=== PATIENT | female | born 1940 | race Caucasian/White ===

== ENCOUNTER → 2023-04-10 | Emergency (ER) | payer OTHER, MEDICARE ==
[~2023-04-10] MED LIST: DERMABOND SKIN ADHESIVE TOP ONE; TDAP (DIPHTH,PERTUSS(ACELL),TET VAC) 0.5 ML VIAL IMVAC ONE
--- OUTSIDE RECORDS SUMMARY | 2023-04-10 10:55 | XMS REPORT | Continuity of Care Document ---
Author Name Unknown Address [address] [facility] [address] [place] [address] [facility] Address [address] [facility] [address] [place] [address] Care Team Providers Care Workforce Advisor Name Role Phone LASHON GARCIA Primary Care Physician BISHNU Lowe Attending Clinician Bishnu Mcarthur MD Attending Clinician [phone] Doctor Unassigned, [place] Attending Clinician U LASHON Hope Admitting Clinician Unavailab le Payers Payer Name Policy Type Policy Number Effective Date Expirati on Date Source MEDICARE PART A \T\ B [id number] 2007 00:00:00 [facility] MEDICARE SUPPLEMENT [id number] 2018 00:00:00 Allergies, Adverse Reactions, Alerts Allergy Name Allergy Type Status Severity Reaction(s) Onset Date Inactive Date Treating Clinician Comments Source NO KNOWN ALLERGIE S Drug Class Active [facility] Social History Social Habit Start Date Stop Date Quantity Comments Source Exposure to SARS-CoV-2 (event) 2022-03-15 00:00:00 2022-03-25 10:07:[address] [facility] Sex Assigned At 1940 00:00[birth year]00 1940 00:00:[address] [facility] Smoking Status Start Date Stop Date Source Tobacco smoking consumption unknown [facility] Procedures Procedure Date / Time Performed Performing Clinicia n Source DEXA AXIAL (HIP AND SPINE) 2022-03-26 21:37:24 Requisition, Paper [facility] CONSENT/REFUSAL FOR DIAGNOSIS AND TREATMENT 2022-03-26 21:18:20 Doctor Unassigned, [place] [facility] Encounters Start Date/Time End Date/Time Encounter Type Admission Type Attending Clinicians Care Facility Care Department Encounter ID Source 2022-03-26 15:23:16 2022-03-26 23:59:00 Outpatient R BISHNU MICHELE [facility] [id number] [facility] 2022-03-26 15:23:16 2022-03-26 23:59:00 Hospital Encounter Bishnu Michele [facility] [id number] [facility] 2022-03-26 00:00:00 2022-03-26 00:00:00 Orders Only Doctor Unassigned, [place] [facility] [id number] [facility]
--- NOTE | 2023-04-10 11:30 | RAD REPORT ---
EXAM DESCRIPTION: CT - [id number] - 04/10/2023 11:16 am CLINICAL HISTORY: Trauma, head and neck injury. TRAUMA COMPARISON: No comparisons TECHNIQUE: Axial 5 mm thick images of the head were obtained. Axial 2 mm thick images of the cervical spine were obtained with sagittal and coronal reconstruction images generated and reviewed. All CT scans are performed using dose optimization technique as appropriate and may include automated exposure control or mA/KV adjustment according to patient size. FINDINGS: CT HEAD WITHOUT CONTRAST: No acute hemorrhage, hydrocephalus or extra-axial collection is identified.Mild generalized brain atr ophy is present with mild periventricular and deep white matter chronic microvascular ischemic change s.No areas of brain edema or midline shift. Complete opacification right maxillary antrum. The paranasal sinuses and mastoids are otherwise clear .Trace fluid in both mastoid air cells.The calvarium is intact. CT CERVICAL SPINE WITHOUT CONTRAST: No fracture or subluxation.Mild cervical degenerative changes.No prevertebral soft tissues swelling i s identified. IMPRESSION: No acute intracranial or cervical spine findings.
--- NOTE | 2023-04-10 12:16 | EDPHYS ---
Physician Documentation [facility] Name: Nicolasa Sigala Age: 82 yrs Sex: Female : 1940 Arrival Date: 04/10/2023 Time: 10:52 Bed 8 Private MD: ED Physician Alvaro Hoff HPI: 04/10 11:02 This 82 yrs old Female presents to ER via Unassigned with complaints of Fall ec2 Injury. 11:02 Patient arrives today for evaluation after ground-level fall. Patient states that she ec2 was walking subsequently tripped over her own symptoms and subsequently struck her head. Reports no LOC, reports she is on a blood thinner but cannot remember which 1. Reports no neck pain. Patient reports no prodromal symptoms, no chest pain, no difficulty breathing. Patient is unsure of her last tetanus shot.. Historical: - Allergies: 11:00 No Known Allergies; bp - Home Meds: 11:00 metoprolol tartrate 25 mg Oral tablet 1 tab daily [Active]; pravastatin 40 mg oral bp tablet 1 tab daily [Active]; fexofenadine 180 mg Oral tablet 1 tab daily [Active]; flecainide 50 mg oral tablet 1 tab every 12 hours [Active]; losartan 25 mg oral tablet 1 tab daily [Active]; - PMHx: 11:00 Hypertensive disorder; Atrial fibrillation; bp - Immunization history:: Adult Immunizations up to date. - Social history:: Smoking status: Patient denies any tobacco usage or history of. ROS: 11:02 Constitutional: as per hpi ec2 Exam: 11:02 Constitutional: GEN: No acute distress HEENT: -Head: atraumatic -Eyes: EOMI CV: ec2 regular rate LUNGS: no respiratory distress ABD: non-tender SKIN: 2 cm laceration noted above the left eyebrow. MSK: No C/T/L spine deformities RUE w/o bony deformity LUE w/o bony deformity RLE w/o bony deformity LLE w/o bony deformity NEURO: moves all extremities equally, GCS 15 (E4, V5, M6) Vital Signs: 11:00 BP 223 / 79; Pulse 64; Resp 16; Temp 98; Pulse Ox 97% ; Weight 71.67 kg; Height 5 ft. 4 bp in. ; 12:42 BP 181 / 75; Pulse 67; Resp 16; Pulse Ox 97% ; bp 11:00 Body Mass Index 27.12 (71.67 kg, 162.56 cm) bp Laceration: 12:14 Wound Repair of 3cm ( 1.2in ) subcutaneous laceration to face. Distal ec2 neuro/vascular/tendon intact. Skin closed with dermabond Adhesive skin closure using Dermabond. Dressed with open. Patient tolerated well. MDM: 10:56 Patient medically screened. ec2 11:02 ED course: Patient arrives today for evaluation after ground-level fall. Examination ec2 remarkable for wound as noted above. Will obtain CT scan of the head and C-spine, update the patient's tetanus status and perform wound management. Patient would like to avoid stitches if possible, will initially attempt with tissue adhesive then revert to stitches if needed.. 11:52 Data reviewed: vital signs. ED course: CT of the head and C-spine without acute ec2 traumatic process.. 12:14 ED course: Laceration repaired without issue, repaired with tissue adhesive. Will ec2 discharge home. Return precautions given. Wound care instructions given.. 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: [employer]; Exp: ThuSep 02 2024; Lot #: [id number]; Series: 1 of 1; Patient Consent: Obtained; Date/Time: ; Source Name: Nicolasa Bradshawidge; Source Relationship: Self; Address Information: [address] [place] [address]; ; Education: Provided; VIS Presented Date: ; VIS Publication: DTaP (Diphtheria, Tetanus, Pertussis) Vaccine VIS 11/16/2020} Route: IM; Site: left gluteus; 12:44 Follow up: Response: No adverse reaction bp Disposition Summary: 04/10/23 12:15 Discharge Ordered Notes: Location: Home ec2 Condition: Stable ec2 Diagnosis - Laceration without foreign body of unspecified part of head ec2 Followup: ec2 - With: Private Physician - When: - Reason: Re-evaluation by your physician Discharge Instructions: - Discharge Summary Sheet ec2 - Facial Laceration, [id number] ec2 Forms: - Medication Reconciliation Form ec2 - Thank You Letter ec2 - Antibiotic Education ec2 - Prescription Opioid Use ec2 - Patient Portal Instructions ec2 - Leadership Thank You Letter ec2 Signatures: Dispatcher [employer] Shawn Rodarte, LJ RN Alvaro Das MD MD ec2
--- NOTE | 2023-04-10 12:16 | ER ---
Nurse's Notes [facility] Name: Nicolasa Sigala Age: 82 yrs Sex: Female : 1940 Arrival Date: 04/10/2023 Time: 10:52 Bed 8 Private MD: Diagnosis: Laceration without foreign body of unspecified part of head Presentation: 04/10 11:00 Chief complaint: Patient states: FALL INJURY. Coronavirus screen: At this time, the bp client does not indicate any symptoms associated with coronavirus-19. Ebola Screen: No symptoms or risks identified at this time. Initial Sepsis Screen: Does the patient meet any 2 criteria? No. Patient's initial sepsis screen is negative. Does the patient have a suspected source of infection? No. Patient's initial sepsis screen is negative. Risk Assessment: Do you want to hurt yourself or someone else? Patient reports no desire to harm self or others. Onset of symptoms is unknown. 11:00 Method Of Arrival: Wheelchair bp 11:00 Acuity: JAMSEET 3 bp Triage Assessment: 11:00 General: Appears in no apparent distress. Behavior is calm, cooperative. Pain: bp Complains of pain in head. 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 - Social history:: Smoking status: Patient denies any tobacco usage or history of. Screenin:42 [facility] ED Fall Risk Assessment (Adult) History of falling in the last 3 months, bp including since admission Yes- single mechanical fall (1 pt). Abuse screen: Denies threats or abuse. Denies injuries from another. Nutritional screening: No deficits noted. Tuberculosis screening: No symptoms or risk factors identified. Assessment: 12:42 Reassessment: Patient appears in no apparent distress at this time. Patient is alert, bp oriented x 3, equal unlabored respirations, skin warm/dry/pink. Vital Signs: 11:00 BP 223 / 79; Pulse 64; Resp 16; Temp 98; Pulse Ox 97% ; Weight 71.67 kg; Height 5 ft. 4 bp in. ; 12:42 BP 181 / 75; Pulse 67; Resp 16; Pulse Ox 97% ; bp 11:00 Body Mass Index 27.12 (71.67 kg, 162.56 cm) bp ED Course: 10:53 Patient arrived in ED. rg4 10:54 Alvaro Hoff MD is Attending Physician. ec2 10:58 Shawn Almaraz, LJ is Primary Nurse. bp 11:00 Arm band placed on. bp 11:18 CT Head C Spine In Process Unspecified. EDMS 11:23 Triage completed. bp 12:42 Patient has correct armband on for positive identification. Bed in low position. Call bp light in reach. Adult w/ patient. 12:42 Assist provider with laceration repair on head that was 2.5 cm. or less using bp Dermabond. Performed by Alvaro Hoff MD Patient tolerated well. 12:44 Patient did not have IV access during this emergency room visit. 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 [address]; ; Education: Provided; VIS Presented Date: ; VIS Publication: DTaP (Diphtheria, Tetanus, Pertussis) Vaccine VIS 11/16/2020} Route: IM; Site: left gluteus; 12:44 Follow up: Response: No adverse reaction bp Medication: 12:42 VIS not applicable for this client. bp Outcome: 12:15 Discharge ordered by . ec2 12:42 Discharged to home ambulatory, with family, bp 12:42 Condition: stable 12:42 Discharge instructions given to patient, family, Instructed on discharge instructions, follow up and referral plans. wound care, Demonstrated understanding of instructions, follow-up care, wound care, 12:44 Patient left the ED. bp Signatures: Dispatcher [employer] Franci Urbina rg4 Shawn Almaraz, RN RN bp Alvaro Hoff MD MD ec2
[2023-04-10 13:36] VITALS: BP 181/75; TEMP 98; O2SAT 97
== END ==
LOC: ER 10:52
PROC: 0HQ1XZZ Repair Face Skin, External Approach (ICD-10-PCS; principal; 2023-04-10)
DX: S01.81XA Laceration without foreign body of other part of head, initial encounter (principal); Z23 Encounter for immunization; I10 Essential (primary) hypertension; I48.91 Unspecified atrial fibrillation
CPT/HCPCS: 70450; 72125; 90471; 99284

== ENCOUNTER 2024-07-26 18:37 | Inpatient (IN) | payer OTHER, MEDICARE ==
--- OUTSIDE RECORDS SUMMARY | 2024-07-26 18:40 | XMS REPORT | Continuity of Care Document ---
Author Name Unknown Address [address] [facility] [address] [place] [address] [facility] Address [address] [facility] [address] [place] [address] Care Team Providers Care Suture Winder Hand Name Role Phone LASHON GARCIA Primary Care Physician BISHNU Lowe Attending Clinician Bishnu Mcarthur MD Attending Clinician [phone] Doctor Unassigned, [place] Attending Clinician U LASHON Hope Admitting Clinician Unavailab le Payers Payer Name Policy Type Policy Number Effective Date Expirati on Date Source MEDICARE PART A \T\ B [id number] 2007 00:00:00 [facility] MED[facility]PPLE[facility] [id number] 2018 00:00:00 Allergies, Adverse Reactions, Alerts Allergy Name Allergy Type Status Severity Reaction(s) Onset Date Inactive Date Treating Clinician Comments Source NO KNOWN ALLERGIE S Drug Class Active [facility] Social History Social Habit Start Date Stop Date Quantity Comments Source Exposure to SARS-CoV-2 (event) 2022-03-15 00:00:00 2022-03-25 10:07:00 Not sure [facility] Sex Assigned At 1940 00:00:00 1940 00:00:00 [facility] Smoking Status Start Date Stop Date Source Tobacco smoking consumption unknown [facility] Procedures Procedure Date / Time Performed Performing Clinicia n Source DEXA AXIAL (HIP AND SPINE) 2022-03-26 21:37:24 Requisition, Paper [facility] CONSENT/REFUSAL FOR DIAGNOSIS AND TREATMENT 2022-03-26 21:18:20 Doctor Unassigned, [place] [facility] Encounters Start Date/Time End Date/Time Encounter Type Admission Type Attending Clinicians Care Facility Care Department Encounter ID Source 2022-03-26 15:23:16 2022-03-26 23:59:00 Outpatient R BISHNU MICHELE [facility] [id number] [facility] 2022-03-26 15:23:16 2022-03-26 23:59:00 Hospital Encounter Bishnu Michele [facility] [id number] [facility] 2022-03-26 00:00:00 2022-03-26 00:00:00 Orders Only Doctor Unassigned, [place] [facility] [id number] [facility]
--- NOTE | 2024-07-26 19:13 | RAD REPORT ---
EXAM: CT brain without contrast HISTORY: Weakness;Confused COMPARISON: 04/10/2023 TECHNIQUE: Multiple contiguous axial images were obtained and a CT of the brain without contrast. Sag ittal and coronal reformats were performed. One or more of the following dose reduction techniques were used: Automated exposure control, adjust ment of the mA and/or kV according to patient size, and/or iterative reconstruction. FINDINGS: No evidence of hydrocephalus, intracranial hemorrhage, or extra-axial fluid collection. Mild brain atrophy with mild periventricular and deep white matter chronic microvascular ischemic ch anges present. No evidence of midline shift or areas of brain edema. The calvarium is intact. Mild polypoid mucosal thickening right maxillary antrum. IMPRESSION: No evidence of acute intracranial abnormality.
[2024-07-26 19:34] LABS: Absolute Basophils 0.1 K/uL (0-0.5); Absolute Lymphocytes (CBC) 0.3 K/uL (0.7-4.9); Absolute Monocytes 1.6 K/uL (0.1-1.3); Absolute Neutrophil 11.9 K/uL (1.8-8.0); Basophils % 0.4 % (0-1.3); Eosinophils % 0.3 % (0-4.4); Hematocrit 39.4 % (36.0-45.0); Hemoglobin 13.4 g/dL (12.0-15.0); MCV 91.2 fL (80-100); MPV 8.6 fL (7.6-11.3); Monocytes % 11.3 % (3.3-12.3); Platelets 291 thou/uL (152-406); RBC Red Blood Cell Count 4.31 M/uL (3.86-4.86); Red Cell Distribution Width 14.2 % (12.1-15.2)
[2024-07-26 19:51] LABS: PT Prothrombin Time 11.6 SECONDS (10-13.0); PTT, Activated Partial Thromb 17.6 SECONDS (27.2-37.4); Protime INR 1.02
[2024-07-26 20:04] LABS: Albumin 2.9 g/dL (3.4-5.0); Albumin/Globulin Ratio 0.9 (1.1-1.8); Anion Gap 9.5 mEq/L (5.0-15.0); Bilirubin Direct 0.2 mg/dL (0-0.2); Bilirubin Indirect, Calculated 0.4 mg/dL (0.2-0.8); Bilirubin Total 0.6 mg/dL (0.2-1.0); Globulin 3.3 g/dL (2.3-3.5); Magnesium 2.1 mg/dL (1.6-2.4); Potassium 3.5 mEq/L (3.5-5.1); Protein, Total 6.2 g/dL (6.4-8.2); Troponin High Sensitivity 50.5 pg/mL (<58.9)
[2024-07-26 21:38] LABS: Blood Morphology Comment NOT SEEN (NOT SEEN); Platelet Estimate ADEQ; White Blood Cell Scan OK (OK)
[2024-07-26 22:59] LABS: Specific Gravity 1.028 (1.005-1.030); Sqamous Epithelial <5 /HPF (None Seen); Urine Bacteria 20-50 /HPF (<20); Urine Bilirubin NEGATIVE (Negative); Urine Blood 1+ (Negative); Urine Clarity Extremely Turbid (Clear); Urine Color Yellow (Yellow); Urine Crystals Unidentified Few /HPF (None Seen); Urine Culture Reflex Order REFLEXED; Urine Glucose NEGATIVE (Negative); Urine Ketones 1+ (Negative); Urine Microscopic Reflex YN ORDER UMIC; Urine Mucus Slight /HPF (None Seen); Urine Nitrite NEGATIVE (Negative); Urine Protein 1+ (Negative); Urine RBC 21-50 /HPF (None Seen); Urine Urobilinogen Normal (Normal); Urine WBC >50 /HPF (<5); Urine WBC Clump Occasional /HPF (None Seen)
--- NOTE | 2024-07-26 23:08 | ER ---
Nurse's Notes [facility] Name: Nicolasa Sigala Age: 83 yrs Sex: Female : 1940 Arrival Date: 07/26/2024 Time: 18:37 Bed 13 Private MD: Diagnosis: Weakness;UTI/ Urinary tract infection, site not specified Presentation: 07/26 18:46 Chief complaint: EMS states: FALL IN BATHROOM AT HOME. Coronavirus screen: At this bp time, the client does not indicate any symptoms associated with coronavirus-19. Ebola Screen: No symptoms or risks identified at this time. Initial Sepsis Screen: Does the patient meet any 2 criteria? No. Patient's initial sepsis screen is negative. Does the patient have a suspected source of infection? No. Patient's initial sepsis screen is negative. Risk Assessment: Do you want to hurt yourself or someone else? Patient reports no desire to harm self or others. Onset of symptoms was July 26, 2024 at 17:00. Care prior to arrival: IV initiated. 20 GA, in the right forearm, Glucose check: 180. 18:46 Method Of Arrival: EMS: [facility] bp 18:46 Acuity: JASMEET 3 bp Triage Assessment: 18:47 General: Appears in no apparent distress. Behavior is calm, cooperative, appropriate bp for age. Pain: Denies pain. EENT: No deficits noted. Neuro: Reports weakness GENERALIZED. Cardiovascular: Rhythm is sinus rhythm. Respiratory: No deficits noted. GI: No signs and/or symptoms were reported involving the gastrointestinal system. : No signs and/or symptoms were reported regarding the genitourinary system. Derm: No deficits noted. Musculoskeletal: Reports weakness in GENERALIZED. Historical: - Allergies: 18:47 No Known Allergies; bp - PMHx: 18:47 Atrial fibrillation; Hypertensive disorder; bp - Immunization history:: Adult Immunizations up to date. - Infectious Disease History:: Denies. - Social history:: Smoking status: Patient denies any tobacco usage or history of. Screenin:49 [facility] ED Fall Risk Assessment (Adult) History of falling in the last 3 months, bp including since admission Yes- single mechanical fall (1 pt) Confusion or Disorientation Yes (5 pts) Intoxicated or Sedated No (0 pts) Impaired Gait No (0 pts) Mobility Assist Device Used Yes (1 pt) Altered Elimination No (0 pt) Score/Fall Risk Level 3 or more points = High Risk Oriented to surroundings, Maintained a safe environment. Abuse screen: Denies threats or abuse. Denies injuries from another. Nutritional screening: No deficits noted. Tuberculosis screening: No symptoms or risk factors identified. Assessment: 19:31 General: Appears in no apparent distress. comfortable, Behavior is calm, cooperative, bp appropriate for age. Pain: Denies pain. Neuro: Level of Consciousness is awake, alert, obeys commands, Oriented to person, place, situation, intermittently confused. Son reports pt has memory loss.. Cardiovascular: Patient's skin is warm and dry. Respiratory: Airway is patent Respiratory effort is even, unlabored, Respiratory pattern is regular, symmetrical. Derm: Skin is intact, Skin is pink, warm \T\ dry. Musculoskeletal: Circulation, motion, and sensation intact. Range of motion: intact in all extremities. 20:31 Reassessment: Patient appears in no apparent distress at this time. Patient and/or jb4 family updated on plan of care and expected duration. Pain level reassessed. Patient is alert, oriented x 3, equal unlabored respirations, skin warm/dry/pink. 21:30 Reassessment: Patient appears in no apparent distress at this time. Patient and/or jb4 family updated on plan of care and expected duration. Pain level reassessed. Patient is alert, oriented x 3, equal unlabored respirations, skin warm/dry/pink. 22:30 Reassessment: Patient appears in no apparent distress at this time. Patient and/or jb4 family updated on plan of care and expected duration. Pain level reassessed. Patient is alert, oriented x 3, equal unlabored respirations, skin warm/dry/pink. 07/27 00:00 Reassessment: Patient appears in no apparent distress at this time. Patient and/or jb4 family updated on plan of care and expected duration. Pain level reassessed. Patient is alert, oriented x 3, equal unlabored respirations, skin warm/dry/pink. 01:00 Reassessment: Patient appears in no apparent distress at this time. Patient and/or jb4 family updated on plan of care and expected duration. Pain level reassessed. Patient is alert, oriented x 3, equal unlabored respirations, skin warm/dry/pink. Vital Signs: 07/26 18:46 BP 113 / 65; Pulse 88; Resp 16; Temp 98; Pulse Ox 98% ; bp 20:02 BP 144 / 55; Pulse 84; Resp 16; Pulse Ox 100% on R/A; jb4 20:31 BP 138 / 57; Pulse 82; Resp 16; Pulse Ox 98% on R/A; jb4 21:30 BP 124 / 60; Pulse 83; Resp 16; Pulse Ox 99% on R/A; jb4 23:00 BP 128 / 58; Pulse 82; Resp 20; Pulse Ox 100% on R/A; jb4 07/27 00:00 BP 97 / 63; Pulse 82; Resp 18; Pulse Ox 99% on R/A; jb4 01:00 BP 131 / 49; Pulse 78; Resp 18; Pulse Ox 98% on R/A; jb4 Vitals: 07/26 20:02 Cardiac Rhythm Assessment Sinus rhythm. jb4 ED Course: 18:41 Patient arrived in ED. kb 18:42 Ruma Georges [facility]C [facility] kb 18:42 Elder Haro MD is Attending Physician. kb 18:46 Shawn Almaraz, LJ is Primary Nurse. bp 18:47 Triage completed. bp 18:47 Arm band placed on. bp 18:49 Patient has correct armband on for positive identification. bp 18:49 Maintain EMS IV. Dressing intact. Good blood return noted. Site clean \T\ dry. Gauge \T\ bp site: 20 RFA. 19:00 CT Head Brain wo Cont In Process Unspecified. EDMS 19:30 Basic Metabolic Panel Sent. bp 19:31 Provided Education on: plan of care. bp 19:31 CBC with Diff Sent. bp 19:31 Hepatic Function Sent. bp 19:31 Magnesium Sent. bp 19:31 Protime (+inr) Sent. bp 19:31 Ptt, Activated Sent. bp 19:31 Troponin High Sensitivity Sent. bp 19:31 No provider procedures requiring assistance completed. bp 23:07 Les Ballesteros MD is Hospitalizing Provider. kb 07/27 01:04 Patient admitted, IV remains in place. jb4 Administered Medications: 07/26 23:50 Drug: Rocephin IV 1 grams IV at calculated rate once; Given slow IV push per pharmacy jb4 instructions Route: IV; Rate: calculated rate; Site: right forearm; 07/27 02:18 Follow up: Response: No adverse reaction; IV Status: Completed infusion bm8 Medication: 07/26 19:31 VIS not applicable for this client. bp Outcome: 23:07 Decision to Hospitalize by Provider. kb 07/27 01:03 Admitted to ER Hold. Please see [facility] for further documentation. jb4 Condition: stable Discharge instructions given to patient, family, Instructed on the need for admit, Demonstrated understanding of instructions, 14:43 Patient left the ED. ph Signatures: Dispatcher [employer] [facility] Ruma Georges, LEAD PERFORMANCE SUPPORT ANALYST-C LEAD PERFORMANCE SUPPORT ANALYST-Scarlet Beebe, RN RN Lyle Dacosta, RN RN jb4 Shawn Almaraz, RN RN En Null, RN RN bm8
--- NOTE | 2024-07-26 23:08 | EDPHYS ---
Physician Documentation [facility] Name: Nicolasa Sigala Age: 83 yrs Sex: Female : 1940 Arrival Date: 07/26/2024 Time: 18:37 Bed 13 Private MD: ED Physician Elder Haro HPI: 07/26 19:03 This 83 yrs old Female presents to ER via EMS with complaints of Fall Injury. kb 19:03 Patient is a 83-year-old female who presents for weakness. Family states patient has kb been weak today and they found her in the bathroom just prior to arrival. States she was in there for less than an hour. Pt has no complaints. . Historical: - Allergies: 18:47 No Known Allergies; bp - PMHx: 18:47 Atrial fibrillation; Hypertensive disorder; bp - Immunization history:: Adult Immunizations up to date. - Infectious Disease History:: Denies. - Social history:: Smoking status: Patient denies any tobacco usage or history of. ROS: 19:03 Constitutional: As per HPI kb Exam: 19:03 Constitutional: This is a well developed, well nourished patient who is awake, alert, kb and in no acute distress. Head/Face: Normocephalic, atraumatic. ENT: Moist Mucous membranes Cardiovascular: Regular rate Respiratory: Respirations even and unlabored. No increased work of breathing. Talking in full sentences Abdomen/GI: Soft, non-tender. No distention Skin: Warm, dry with normal turgor. Normal color. MS/ Extremity: Pulses equal, no cyanosis. Neurovascular intact. Full, normal range of motion. Neuro: Awake and alert, GCS 15, oriented to person, place, time, and situation. 20:00 ECG was reviewed by the Attending Physician. kb Vital Signs: 18:46 BP 113 / 65; Pulse 88; Resp 16; Temp 98; Pulse Ox 98% ; bp 20:02 BP 144 / 55; Pulse 84; Resp 16; Pulse Ox 100% on R/A; jb4 20:31 BP 138 / 57; Pulse 82; Resp 16; Pulse Ox 98% on R/A; jb4 21:30 BP 124 / 60; Pulse 83; Resp 16; Pulse Ox 99% on R/A; jb4 23:00 BP 128 / 58; Pulse 82; Resp 20; Pulse Ox 100% on R/A; jb4 07/27 00:00 BP 97 / 63; Pulse 82; Resp 18; Pulse Ox 99% on R/A; jb4 01:00 BP 131 / 49; Pulse 78; Resp 18; Pulse Ox 98% on R/A; jb4 MDM: 07/26 18:41 Medical Screening Exam initiated kb 23:06 Differential diagnosis: uti, rhabdo, generalized weakness, abnormal electrolytes. Data kb reviewed: vital signs, nurses notes. Consideration of Admission/Observation Patient was admitted/placed on observation. Escalation of care including admission/observation considered. Management of patient was discussed with the following: Hospitalist: Dr Ballesteros accepts pt for admission. Historians other than the Patient: EMS: [facility]. Counseling: I had a detailed discussion with the patient and/or guardian regarding the historical points, exam findings, and any diagnostic results supporting the discharge/admit diagnosis, lab results, radiology results, the need for further work-up and treatment in the hospital. 23:22 ED course: I spoke with patient's son who informed me that patient lives alone and was kb found today on the floor but he is not sure how long she had been there. States he comes every Thursday to check in on her. States patient has been declining mentally and physically over the last year. States patient was too weak to get herself off the ground or to walk whenever he found her.. 07/26 18:43 Order name: Basic Metabolic Panel; Complete Time: 23:39 kb 07/26 18:43 Order name: CBC with Diff; Complete Time: 21:50 kb 07/26 18:43 Order name: Hepatic Function; Complete Time: 23:39 kb 07/26 18:43 Order name: Magnesium; Complete Time: 23:39 kb 07/26 18:43 Order name: Protime (+inr); Complete Time: 20:10 kb 07/26 18:43 Order name: Ptt, Activated; Complete Time: 20:10 kb 07/26 18:43 Order name: Troponin High Sensitivity; Complete Time: 23:39 kb 07/26 18:43 Order name: Urinalysis w/ reflexes; Complete Time: 23:03 kb 07/26 21:38 Order name: CBC Smear Scan; Complete Time: 21:50 EDMS 07/26 22:33 Order name: Creatine Phosphokinase; Complete Time: 23:39 EDMS 07/26 23:05 Order name: Urine Culture EDMS 07/26 23:39 Order name: Basic Metabolic Panel EDMS 07/26 23:39 Order name: Basic Metabolic Panel EDMS 07/26 23:39 Order name: CBC with Automated Diff EDMS 07/26 23:39 Order name: CBC with Automated Diff EDMS 07/26 18:43 Order name: CT Head Brain wo Cont; Complete Time: 19:17 kb 07/26 18:43 Order name: Cardiac monitoring; Complete Time: 19:52 kb 07/26 18:43 Order name: EKG - Nurse/Tech; Complete Time: 20:09 kb 07/26 18:43 Order name: IV Saline Lock; Complete Time: 19:15 kb 07/26 18:43 Order name: Labs collected and sent; Complete Time: 19:30 kb 07/26 18:43 Order name: NPO; Complete Time: 19:15 kb 07/26 18:43 Order name: O2 Per Protocol; Complete Time: 19:15 kb 07/26 18:43 Order name: O2 Sat Monitoring; Complete Time: 19:15 kb EC:00 Rate is 85 beats/min. Rhythm is regular. QRS Pollock is Normal. NE interval is normal at kb 142 msec. QRS interval is normal at 78 msec. QT interval is prolonged at 530 msec. Administered Medications: 23:50 Drug: Rocephin IV 1 grams IV at calculated rate once; Given slow IV push per pharmacy jb4 instructions Route: IV; Rate: calculated rate; Site: right forearm; 07/27 02:18 Follow up: Response: No adverse reaction; IV Status: Completed infusion bm8 Disposition: 07:01 Co-signature as Attending Physician, Elder Haro MD I reviewed the patient's care rt provided by the Advanced Practice Provider and agree with the diagnosis and treatment plan. Disposition Summary: 07/26/24 23:07 Hospitalization Ordered Notes: Hospitalization Status: Observation kb Provider: Les Ballesteros Condition: Stable kb Problem: new kb Symptoms: are unchanged kb Bed/Room Type: Standard kb Location: Telemetry/MedSurg (observation)(07/27/24 13:41) bd Room Assignment: 406(07/27/24 13:41) bd Diagnosis - Weakness kb - UTI/ Urinary tract infection, site not specified kb Forms: - Medication Reconciliation Form kb - SBAR form kb - Leadership Thank You Letter kb Signatures: Dispatcher [employer] EDMS Ruma Georges, YARDAGE TUFTING MACHINE OPERATOR-C YARDAGE TUFTING MACHINE OPERATOR-Ckb Tiffani Will James, RN RN jb4 Shawn Almaraz, RN RN bp Shireen Rodriguez, RN RN vc1 Elder Haro MD MD rt En Ellison RN bm8 Corrections: (The following items were deleted from the chart) 07/26 18:43 18:43 BASIC METABOLIC PANEL+C.LAB.BRZ ordered. EDMS EDMS 18:43 18:43 CBC+H.LAB.BRZ ordered. EDMS EDMS 18:43 18:43 HEPATIC FUNCTION+C.LAB.BRZ ordered. EDMS EDMS 18:43 18:43 MAGNESIUM+C.LAB.BRZ ordered. EDMS EDMS 18:43 18:43 PROTIME (+INR)+COAG.LAB.BRZ ordered. EDMS EDMS 18:43 18:43 PTT, ACTIVATED+COAG.LAB.BRZ ordered. EDMS EDMS 18:43 18:43 Troponin High Sensitivity+C.LAB.BRZ ordered. EDMS EDMS 18:43 18:43 Urinalysis+U.LAB.BRZ ordered. EDMS EDMS 18:43 18:43 Head Brain Wo Cont+CT.RAD.BRZ ordered. EDMS EDMS 22:30 22:29 CREATINE PHOSPHOKINASE+C.LAB.BRZ ordered. EDMS EDMS 07/27 00:01 07/26 23:07 Telemetry/MedSurg (observation) vc1 07/27 00:01 07/26 23:[address] [facility] 07/27 13:41 00:01 [facility] ER HOLD vc1 bd 13:41 00:01 ERHOLD- vc1 bd
[2024-07-26] MEDS ORDERED: ONDANSETRON 4 MG/2 ML VIAL IV PRN (23:35)
[2024-07-26] MEDS ORDERED: MORPHINE 2 MG/ML SYR IV PRN (23:35)
[2024-07-26] MEDS ORDERED: CEFTRIAXONE 1000 MG/VIAL ONE (23:35)
[2024-07-26] MEDS ORDERED: ACETAMINOPHEN 500 MG TAB PO PRN (23:35)
--- NOTE | 2024-07-27 01:48 | P.HP ---
Patient History Date of Service: 07/27/24 Reason for admission: Fall History of Present Illness: 83-year-old female with a past medical history of atrial fibrillation, dementia, hypertension presenting after a fall at home. Her son is at bedside and relates most of the history as the patient is oriented to person. He found her on the ground. He states she may have been there for about a day. He denies fevers and chills. He states she has no history of voiding or having bowel movements. Review of Systems is unable to be obtained Physical Examination - Physical Exam General: In no apparent distress HEENT: Normocephalic Neck: Supple Respiratory: Normal air movement Cardiovascular: No edema Capillary refill: <2 Seconds Gastrointestinal: Normal bowel sounds Musculoskeletal: No clubbing Integumentary: No rashes Neurological: Normal strength at 5/5 x4 extr Lymphatics: No axilla or inguinal lymphadenopathy - Studies Laboratory Data (last 24 hrs) 07/26/24 07/26/24 07/26/24 19:27 19:27 19:27 WBC 13.90 H Hgb 13.4 Hct 39.4 Plt Count 291 PT 11.6 INR 1.02 APTT 17.6 L Sodium 142 Potassium 3.5 BUN 47 H Creatinine 0.99 Glucose 136 H Magnesium 2.1 Total Bilirubin 0.6 AST 179 H ALT 80 H Alkaline Phosphatase 59 Assessment and Plan - Plan Rhabdomyolysis Acute cystitis Transaminitis Weakness Atrial fibrillation Hypertension Admit to floor Continue IV normal saline Start Rocephin Urine culture pending PT OT consult DVT prophylaxis with Lovenox - Advance Directives Does patient have a Living Will: No Does patient have a Durable POA for Healthcare: No
[2024-07-27 02:32] VITALS: BMI 24.3
[2024-07-27 05:48] LABS: Absolute Basophils 0.1 K/uL (0-0.5); Absolute Lymphocytes (CBC) 0.8 K/uL (0.7-4.9); Absolute Monocytes 1.3 K/uL (0.1-1.3); Basophils % 0.8 % (0-1.3); Hematocrit 38.8 % (36.0-45.0); Hemoglobin 13.3 g/dL (12.0-15.0); Lymphocytes % 7.7 % (15.3-44.8); MCH 31.4 pg (27.0-35.0); MCHC 34.3 g/dL (32.0-36.0); MCV 91.5 fL (80-100); MPV 8.8 fL (7.6-11.3); Monocytes % 12.6 % (3.3-12.3); Neutrophils % 78.9 % (41.7-73.7); Platelets 311 thou/uL (152-406); RBC Red Blood Cell Count 4.25 M/uL (3.86-4.86); Red Cell Distribution Width 14.4 % (12.1-15.2)
[2024-07-27 05:55] LABS: Anion Gap 7.6 mEq/L (5.0-15.0); Potassium 3.6 mEq/L (3.5-5.1)
[2024-07-27] MEDS ORDERED: NA CHLORIDE 0.9% 1,000 ML ONE (06:15)
[2024-07-27] MEDS: NA CHLORIDE 0.9% 1,000 ML IV SCH (06:20)
[2024-07-27] MEDS ORDERED: NA CHLORIDE 0.9% 100 ML ONE (08:36)
[2024-07-27] MEDS ORDERED: CEFTRIAXONE 1000 MG/VIAL ONE (08:36)
[2024-07-27] MEDS: CEFTRIAXONE 1,000 MG in NA CHLORIDE 0.9% 50 ML IVPB SCH (09:00)
[2024-07-28 09:12] LABS: Absolute Lymphocytes (CBC) 0.8 K/uL (0.7-4.9); Absolute Monocytes 0.7 K/uL (0.1-1.3); Absolute Neutrophil 5.1 K/uL (1.8-8.0); Basophils % 0.6 % (0-1.3); Eosinophils % 0.5 % (0-4.4); Hematocrit 36.1 % (36.0-45.0); Hemoglobin 12.2 g/dL (12.0-15.0); Lymphocytes % 12.5 % (15.3-44.8); MCH 31.2 pg (27.0-35.0); MCHC 33.7 g/dL (32.0-36.0); MCV 92.4 fL (80-100); MPV 8.4 fL (7.6-11.3); Monocytes % 10.8 % (3.3-12.3); Neutrophils % 75.6 % (41.7-73.7); Platelets 263 thou/uL (152-406); RBC Red Blood Cell Count 3.91 M/uL (3.86-4.86); Red Cell Distribution Width 13.9 % (12.1-15.2)
[2024-07-28 10:15] LABS: Albumin 2.5 g/dL (3.4-5.0); Albumin/Globulin Ratio 0.8 (1.1-1.8); Anion Gap 9.5 mEq/L (5.0-15.0); Bilirubin Total 0.5 mg/dL (0.2-1.0); Globulin 3.1 g/dL (2.3-3.5); Potassium 3.5 mEq/L (3.5-5.1); Protein, Total 5.6 g/dL (6.4-8.2)
[2024-07-28 21:17] VITALS: TEMP 97.9
[2024-07-29 04:38] VITALS: BP 161/68
[2024-07-29 09:25] VITALS: O2SAT 97
--- NOTE | 2024-08-03 13:09 | EKG ---
Test Date: 2024-07-26 Test Time: 19:33:04 Funeral Driver: ALAN MEASUREMENT RESULTS: Intervals: Rate: 84 [place]: QRSD: 78 QT: 426 QTc: 503 [place]: P: 68 [place]: QRS: 11 T: 43 INTERPRETIVE STATEMENTS: poor study, lot of artifact, hard to interpret rhythm. Anterior infarct, age undetermined Abnormal ECG No previous ECG available for comparison Electronically Signed On 08-03-24 12:49:14 CDT by Bautista Hinton
== END 2024-07-29 08:13 | DRG 558 ==
LOC: ER 18:37 → ERHOLD 23:34 → 4TH 07-27 14:22
PROVIDERS: ADMIT Family Medicine; ATTEND Hospitalist
DX: M62.82 Rhabdomyolysis (principal); N30.00 Acute cystitis without hematuria; I48.91 Unspecified atrial fibrillation; I10 Essential (primary) hypertension; F03.90 Unspecified dementia, unspecified severity, without behavioral disturbance, psychotic disturbance, mood disturbance, and anxiety; R74.01 Elevation of levels of liver transaminase levels; W18.30XA Fall on same level, unspecified, initial encounter; Y93.9 Activity, unspecified; Y92.019 Unspecified place in single-family (private) house as the place of occurrence of the external cause; Y99.9 Unspecified external cause status
CPT/HCPCS: 36415; 70450; 80048; 80053; 80076; 81001; 82550; 83735; 84484; 85025; 85610; 85730; 87077; 87086; 87088; 87186; 93005; 96365; 96366; 97116; 97161; 97530; 99285; J0696; J7030

== ENCOUNTER 2024-07-29 06:31 | Inpatient (IN) | payer OTHER, MEDICARE ==
[2024-07-29] MEDS ORDERED: MAGNESIUM HYDROXIDE 8% 30 ML PO PRN (08:18)
--- OUTSIDE RECORDS SUMMARY | 2024-07-29 08:18 | XMS REPORT | Continuity of Care Document ---
Author Name Unknown Address [address] [facility] [address] [place] [address] [facility] Address [address] [facility] [address] [place] [address] Care Team Providers Care Numerologist Name Role Phone LASHON GARCIA Primary Care Physician BISHNU Lowe Attending Clinician Bishnu Mcarthur MD Attending Clinician [phone] Doctor Unassigned, [place] Attending Clinician U LASHON Hope Admitting Clinician Unavailab le Payers Payer Name Policy Type Policy Number Effective Date Expirati on Date Source MEDICARE PART A \T\ B [id number] 2007 00:00:00 [facility] MEDICARE SUPPLEMENT [id number] 2018 00:00:00 Allergies, Adverse Reactions, Alerts Allergy Name Allergy Type Status Severity Reaction(s) Onset Date Inactive Date Treating Clinician Comments Source NO KNOWN ALLERGIE S Drug Class Active [facility] Social History Social Habit Start Date Stop Date Quantity Comments Source Exposure to SARS-CoV-2 (event) 2022-03-15 00:00:00 2022-03-25 10:07:00 Not sure [facility] Sex Assigned At 1940 00:00:00 1940 00:[birth year]:00 [facility] Smoking Status Start Date Stop Date Source Tobacco smoking consumption unknown [facility] Procedures Procedure Date / Time Performed Performing Clinicia n Source DEXA AXIAL (HIP AND SPINE) 2022-03-26 21:37:24 Requisition, Paper [facility] CONSENT/REFUSAL FOR DIAGNOSIS AND TREATMENT 2022-03-26 21:18:20 Doctor Unassigned, [place] [facility] Encounters Start Date/Time End Date/Time Encounter Type Admission Type Attending Clinicians Care Facility Care Department Encounter ID Source 2022-03-26 15:23:16 2022-03-26 23:59:00 Outpatient R BISHNU MICHELE [facility] [id number] [facility] 2022-03-26 15:23:16 2022-03-26 23:59:00 Hospital Encounter Bishnu Michele [facility] [id number] [facility] 2022-03-26 00:00:00 2022-03-26 00:00:00 Orders Only Doctor Unassigned, [place] [facility] [id number] [facility]
[2024-07-29 09:58] LABS: Specific Gravity 1.018 (1.005-1.030); Sqamous Epithelial <5 /HPF (None Seen); Transitional Epithelial <5 /HPF (None Seen); Urine Bacteria None Seen /HPF (<20); Urine Bilirubin NEGATIVE (Negative); Urine Blood Negative (Negative); Urine Clarity Clear (Clear); Urine Color Light-Yellow (Yellow); Urine Glucose NEGATIVE (Negative); Urine Ketones NEGATIVE (Negative); Urine Micro Reflex YN NO BILL MICROSCOPIC; Urine Mucus Slight /HPF (None Seen); Urine Nitrite NEGATIVE (Negative); Urine Protein NEGATIVE (Negative); Urine RBC <5 /HPF (None Seen); Urine Urobilinogen Normal (Normal); Urine WBC <5 /HPF (<5); Urine pH 6.5 (5.0-7.0)
[2024-07-29] MEDS: CEFDINIR 300 MG CAP PO SCH (19:22)
[2024-07-29 21:03] VITALS: BMI 24.3
--- NOTE | 2024-07-30 00:48 | HP ---
Date of Admission: 07/29/2024 Time Of Service: 2 p.m. Chief Complaint: "I fell and I need to get stronger." History Of Present Illness: Ms. Sigala is an 83-year-old patient with atrial fibrillation, lillie ia, hypertension, who lives alone at home, but has family close by. She apparently fell at home and was found on the bathroom floor by her son. The fall was unwitnessed and she was down for about 24 h ours. She was brought to hospital where evaluation revealed rhabdomyolysis, acute cystitis, urinary tract infection, transaminitis on top of her atrial fibrillation, hypertension with generalized weakn ess. She received significant IV hydration, was put on antibiotics, received Rocephin. Urine cultur es, blood cultures collected and had telemetry monitoring. She was evaluated by the Therapy Service and found to be functioning significantly below her baseline, where she was independent with mobiliza tion, ambulation, and taking care of her own activities of daily living. As a result of her rhabdomy olysis and falls, she now requires moderate assistance for transferring, mobilizing, ambulating, and dressing upper and lower body. She also requires aggressive management of fluid status to follow tavo ctrolytes to rule out any worsening infection such as urinary tract infection or pneumonia to maintai n her nutritional status and to follow her hemoglobin and hematocrit to reduce risk of significant an emia. As noted prior to falling, she was fully independent with all activities including cooking, cl eaning, taking care of herself, and driving independently to appointments and local destinations. Marily em is now admitted to the inpatient rehabilitation unit for physical, occupational, and speech therapy 3.5 hours, 5 of 7 days. If she is discharged home or admitted to another facility, she is not likel y to thrive or do well and could fall and worsen. Inpatient rehabilitation is necessary as she again will do well when she is in a safe place where she can have aggressive therapy. Past Medical History: As noted above. Allergies: NO KNOWN DRUG ALLERGIES. Medications: Tylenol 500 mg every 4 hours as needed, Cordarone 200 mg daily, cefdinir 300 mg twice d aily, Marla 180 mg daily, Cozaar 100 mg daily, milk of magnesia 30 mL daily as needed, Lopressor 25 mg daily, Xarelto 10 mg daily, [place] Thyroid 60 mg daily. Laboratory Studies: Urinalysis shows 75 esterase, but is otherwise unremarkable. White blood cell c ount 6.7, hemoglobin 12.2, hematocrit 36.1, platelets 263. Her potassium is 3.5, glucose 118, BUN 27 , creatinine 0.6, calcium 8.2, magnesium 2.1, albumin 2.5, and sodium 147. X-ray/imaging: CT scan of her head done on 07/26/2024 shows no evidence of acute intracranial abnorm alities. Family History: Noncontributory. Social History: No IV drug use. No alcohol. No tobacco use. Lives in a single family home and prerna es independently and alone. Review of Systems: No fevers, chills, nausea, vomiting. No significant myalgias or arthralgias except mild muscle spasm s and weakness proximally and distally. Some difficulty with sleep. Said there was some noise makin g it difficult for her to sleep well. Otherwise, no new complaints. Physical Examination: Vital Signs: Blood pressure 149/76, pulse of 68, respiratory rate 12, temperature is 97.8, oxygen sa turation 96% room air. Current Level Of Functioning: Currently, for her eating, setup assistance, grooming setup assistance , moderate assistance for bathing, supervision for upper body dressing and lower body dressing, moder ate assistance for toileting, supervision for transfer from bed, chair, wheelchair, her toilet transf ers is moderate assistance, ambulation 250 feet with supervision. Assessment: Ms. Sigala is an 83-year-old patient admitted to the rehabilitation unit with impairm ent category 09, orthopedic and her impairment group code is 08.9, other orthopedic. Etiologic diagn osis is rhabdomyolysis. Comorbid conditions are hypothyroidism, atrial fibrillation, hypertension, d ementia, insomnia, seasonal allergies, constipation. Plan: She will have physical, occupational, and speech therapy 3.5 hours, 5 of 7 days, to work on he r blood pressures and heart rate control with amiodarone 200 mg daily and Lopressor 25 mg daily, Xare lto 10 mg daily for DVT risk reduction and stroke risk reduction, [place] Thyroid 60 mg daily for hypo thyroidism. She is continuing the cefdinir antibiotic 300 mg twice daily from 07/29 to 08/03, Tyleno l for pain. Comorbidities That Are Impacting Rehabilitation: She does have a significant risk of stroke because of atrial fibrillation. She is on Xarelto. However, Xarelto does increase the risk of bleeding and fall precautions will be strictly adhered to as if she falls on noncompressible areas such as above h er head, there could be significant bleeding and so gait belt will be on at all times. She will have a wheelchair following as she uses a rolling walker with the therapist very close by. She is instru cted to call the nursing station for any transfers to her restroom, to retrieve objects within her ro om. She does have cefdinir to continue management of systemic infection from urinary tract. Repeat urinalysis, esterase 75, not consistent with ongoing infection, which is completing a course of infec tion, which was started prior to coming to rehabilitation. Rehab Specific Plan: Ms. Sigala will have physical, occupational, and speech therapy 3.5 hours, 5 of 7 days, to improve her ability to transfer from bed to chair, to toilet, to a shower in and out, to dress upper and lower body, to mobilize more than household distances, and up and down at least 10 steps. She will have cognitive therapy via Speech to help her with safety awareness, with processin g information, with communication, and how to manage medications safely and to maintain good precauti ons otherwise. Ms. Sigala has a good understanding of the process of admission to the inpatient rehabilitation un it, how she will benefit from physical, occupational, and speech therapy. She will have 24 hours a d ay, 7 days a week skilled rehabilitation and nursing, daily physician evaluation and management, and social services coordinator evaluation and management for discharge planning, home equipment, and to continue the rapy after she leaves. If need be, additional help will be sought [facility]. Barriers To Discharge: Since Ms. Sigala lives alone, she will need to be in very good condition t o be able to return home safely and reduce risk of falling again. She will work hard with the therap ist to be able to go back home. This will be communicated with family. However, if alternative situ ations are needed, that will be addressed at the time before the patient is discharged, but the goal is for her to be able to go back home and work hard with her family and continue therapy via [facility]. Length Of Stay: About 12 days. Disposition: Expected to be back home with family and to continue therapy. Prognosis: Good. Code Status: Full code. Rehab Specific Goals: 1. Become independent with upper and lower body dressing and donning and doffing footwear. 2. Independently mobilize a wheelchair and a rolling walker. 3. Independently dress upper and lower body and perform all activities of daily living. 4. Independently perform cognitive functioning safely and manage all medications, physician followups . The above goals were reviewed with Ms. Sigala and she is in agreement. By signing this document, I acknowledge I first performed a full physical examination on Ms. Suhail em no later than 24 hours after her admission to the inpatient rehabilitation unit and determined that she is able to tolerate the above course of treatment at an intensive level for a reasonable period of time. A detailed individualized plan of care for her will be completed by hospital day 4 based on the preadmission screen, history and physical, and therapy evaluations. DOUGLAS Voice ID: [id number]
[2024-07-30] MEDS: THYROID 30 MG TAB PO SCH (05:09)
[2024-07-30 05:33] LABS: Absolute Eosinophils 0.1 K/uL (0-0.5); Absolute Lymphocytes (CBC) 1.1 K/uL (0.7-4.9); Absolute Monocytes 0.5 K/uL (0.1-1.3); Absolute Neutrophil 3.2 K/uL (1.8-8.0); Basophils % 0.4 % (0-1.3); Eosinophils % 2.5 % (0-4.4); Hematocrit 34.6 % (36.0-45.0); Hemoglobin 12.1 g/dL (12.0-15.0); Lymphocytes % 22.2 % (15.3-44.8); MCH 31.9 pg (27.0-35.0); MCHC 34.9 g/dL (32.0-36.0); MCV 91.4 fL (80-100); MPV 8.7 fL (7.6-11.3); Monocytes % 10.6 % (3.3-12.3); Neutrophils % 64.3 % (41.7-73.7); Platelets 253 thou/uL (152-406); RBC Red Blood Cell Count 3.79 M/uL (3.86-4.86); Red Cell Distribution Width 13.8 % (12.1-15.2)
[2024-07-30 05:49] LABS: Albumin 2.4 g/dL (3.4-5.0); Anion Gap 8.8 mEq/L (5.0-15.0); Magnesium 1.9 mg/dL (1.6-2.4); Potassium 3.8 mEq/L (3.5-5.1); Prealbumin 12.7 mg/dL (20-40)
[2024-07-30] MEDS: METOPROLOL TAR 25 MG TAB PO SCH (09:10)
[2024-07-30] MEDS: RIVAROXABAN 10 MG TABLET PO SCH (09:10)
[2024-07-30] MEDS: AMIODARONE HCL 200 MG TAB PO SCH (09:11)
[2024-07-30] MEDS: LOSARTAN POTASSIUM 50 MG TABLET PO SCH (11:28)
[2024-07-30] MEDS: ENSURE ENLIVE 237 ML CAN PO SCH (19:46)
[2024-08-01] MEDS: ACETAMINOPHEN 500 MG TAB PO PRN (05:12)
--- NOTE | 2024-08-01 20:19 | PN ---
Date of Progress Note: 08/01/2024 Time Of Service: 1:30 P.m. Subjective: Ms. Sigala is doing very well, very happy with her therapy so far, making great progr ess that she is able to mobilize. She was talking about family and getting back to her baseline leve l of functioning and again making great progress with her therapy. Objective: No fevers, chills, nausea, vomiting, myalgias, arthralgias, rash, headaches, weight harrington e. No other issues or complaints. Physical Examination: Vital Signs: Blood pressure 134/61, pulse 82, respiratory rate 16, temperature 97.4, oxygen saturati on 97%, weight 151 pounds, height 5 feet 6 inches, BMI 24.4. General: Ms. Sigala is doing very well. She is sitting on a chair and doing therapy sessions. HEENT: Normocephalic, atraumatic. Sclerae are anicteric. Oropharynx pink and moist. Neck: Supple. Chest: Clear. Heart: Regular. Extremities: Show no significant clubbing, cyanosis, or edema. She does have mild proximal weakness of her lower extremities. Otherwise, no new findings there. Neurologic: Again, she is doing very well. No focal neurologic deficits noted, just proximal weakne ss. Laboratory Studies: White blood cell count 5.0, hemoglobin 12.1, platelets 253. Sodium 144, potassi um 3.8, chloride 110, carbon dioxide 29, BUN 13, creatinine 0.5, prealbumin 12.7, albumin 2.4, magnes ium 1.9, calcium 8.5. Urinalysis completely normal except for esterase of 75 on labs drawn on 07/29. X-ray imaging: No new x-rays or imaging. Medications: Tylenol 500 mg every 4 hours as needed, Cordarone 200 mg daily, cefdinir 300 mg twice d aily, Marla 180 mg daily, Cozaar 100 mg daily, milk of Mag 30 mL daily for constipation, Lopressor 25 mg daily Ensure Enlive 237 mL twice daily, Xarelto 10 mg daily, [place] Thyroid 60 mg daily. Progress Made With Physical, Occupational, And Speech Therapy: Today, with physical therapy she was able to do [id number] transfers independently, perform multiple [id number] transfers independe ntly and toilet transfers with hygiene done independently. She ambulated 600 feet, 250 feet, 150 fee t with standby assistance. Emphasis placed on upright posture. She was able to go up and down [address] st eps with standby assistance using bilateral handrails. With her speech, recalled 2 of 3 unrelated wo rds after 30 minutes and then 3 of 3 after another 3 and 5 minutes. Divergent naming completed for 1 0 words for concrete category with moderate verbal cues and 90% accuracy. Assessment: Ms. Sigala is an 83-year-old patient in the rehabilitation unit with rhabdomyolysis. She is making excellent progress, recovering strength in her proximal upper and lower extremities. She has well-controlled comorbid conditions, hypothyroidism, hypertension, mild malnutrition and is o n antibiotics. She has seasonal allergies, which are well addressed, pain is well addressed, sleepin g issues addressed as well. Plan: She will continue with physical, occupational, and speech therapy for 3.5 hours, 5 out of 7 da ys. She has a list of medications that have been noted that we will continue unchanged. In terms of her discharge, she is ready for discharge later in a week is recommended since she is doing very wel l actually outpatient therapy, although she was given information about home health and she will tracy ct a home health agency to continue therapy. GREG/SAUL Voice ID: [id number] Report ID: [id number]
--- NOTE | 2024-08-02 14:52 | PN ---
Date of Progress Note: 08/02/2024 Time Of Service: 1 p.m. Subjective: Ms. Sigala is sitting in a chair. Son is at the bedside. She is very happy with the rapy so far, smiling. Denies any significant pain. No new weakness. Some sensory loss or other com plaints and she is aware of her discharge. There is note of the patient's cognitive impairment, wher e she has some difficulty keeping up with words, thoughts, conversations, and would benefit from clos e supervision if not 24 hours at least, remote to supervision. [facility] that may allow family to keep an eye on her in addition to having assistance during the da y with the plan to be at home. Objective: No fevers, chills, nausea, vomiting, myalgias, arthralgias. Physical Examination: Vital Signs: Blood pressure is 159/66, pulse 66, respiratory rate 16, temperature 97.4, oxygen satur ation 95%. Weight 151, height 5 feet 6 inches, BMI 24.4. General: Again, Ms. Sigala is sitting in a chair comfortably. She is in no significant distress. She said the lunch was good and she did not have any complaints there. HEENT: Otherwise, normocephalic, atraumatic. Sclerae anicteric. Oropharynx pink, moist. No new ch anges in terms of examination. Laboratory Studies: No new laboratory studies. X-ray/imaging: No new x-rays or imaging. Medications: Her medications have been reviewed. She is still on amiodarone, cefdinir, Marla, Coz aar, Lopressor, milk of mag, Ensure Enlive. She has Xarelto for stroke and DVT risk reduction, [place] r Thyroid for hypothyroidism, and Tylenol for pain. Progress Made With Physical And Occupational Therapy: Today with her occupational therapy, she was i ndependent with toilet transfers, ambulated from bathroom to room to shower, was able to be on a show er chair. She did well. She was independent with toilet hygiene, completed hygiene standing at the sink as well without loss of balance and able to don and doff her footwear independently, upper body dressing independently and lower body dressing also was independent. She did have to have a reminder as to how to safely get dressed. Regarding her physical therapy, she covered 750 feet once and 250 feet with a rolling walker with standby assistance and another 500 feet without an assistive device a nd standby assistance. She was up and down 20 steps with standby assistance and another 10 steps als o using left hand rail. Assessment: Ms. Sigala is an 83-year-old patient in the rehabilitation unit with rhabdomyolysis. She is recovering in excellent fashion. She still has mild debility, mild decreased mobility and ph ysical functioning, hypertension, seasonal allergies, mild malnutrition, hypothyroidism, and atrial f ibrillation. Plan: Continue with physical, occupational, and speech therapy until discharge later in the week. S he will continue with the list of medications to address her comorbid conditions. She has DVT prophy laxis on board. Encourage actually to use incentive spirometry as well and work on discharge plan, w here she is in a safe environment as she has some cognitive issues and may make unsafe decisions whic h potentially could lead to falls, so fall precautions must be adhered to and having someone there du ring the day perhaps camera as much as possible at nighttime after she is discharged that will be hel pful. LB/MODL Voice ID: [id number] Report ID: [id number]
[2024-08-03] MEDS: FEXOFENADINE 180 MG TAB PO PRN (00:44)
[2024-08-03] MEDS: LIDOCAINE 4% PATCH TOP SCH (10:17)
--- NOTE | 2024-08-03 13:09 | EKG ---
Test Date: 2024-07-26 Test Time: 19:54:36 Repair Cameraman: ALAN MEASUREMENT RESULTS: Intervals: Rate: 85 DC: 138 QRSD: 82 QT: 320 QTc: 380 [place]: P: 68 DC: 138 QRS: 12 T: 47 INTERPRETIVE STATEMENTS: Normal sinus rhythm Anterior infarct, age undetermined Abnormal ECG Compared to ECG 07/26/2024 19:33:04 Atrial flutter no longer present Myocardial infarct finding still present Electronically Signed On 08-03-24 12:48:10 CDT by Bautista Hinton
--- NOTE | 2024-08-03 17:21 | RAD REPORT ---
EXAM: Chest Single View HISTORY: 83 years Female cough COMPARISON: None. FINDINGS: LUNGS/PLEURA: The lungs are clear. No pleural effusions or pneumothorax. No pulmonary edema. CARDIAC/MEDIASTINUM: The cardiac silhouette is within normal limits. UPPER ABDOMEN: No significant abnormality. BONES: No acute abnormality. LINES/TUBES/OTHER: N/A IMPRESSION: No evidence of acute cardiopulmonary disease.
[2024-08-03] MEDS: guaiFENesin 100 MG/5 ML UCUP PO PRN (17:33)
[2024-08-03 19:34] LABS: Influenza A Ag Negative; Influenza B Ag Negative
[2024-08-03 19:37] LABS: SARS-CoV-2 Antigen Rapid Res Positive (Negative)
[2024-08-04 05:49] LABS: Absolute Lymphocytes (CBC) 0.6 K/uL (0.7-4.9); Absolute Monocytes 0.9 K/uL (0.1-1.3); Absolute Neutrophil 3.8 K/uL (1.8-8.0); Basophils % 0.6 % (0-1.3); Eosinophils % 0.6 % (0-4.4); Hematocrit 34.5 % (36.0-45.0); Hemoglobin 11.8 g/dL (12.0-15.0); Lymphocytes % 10.7 % (15.3-44.8); MCH 31.2 pg (27.0-35.0); MCHC 34.4 g/dL (32.0-36.0); MCV 90.8 fL (80-100); MPV 8.4 fL (7.6-11.3); Monocytes % 16.4 % (3.3-12.3); Neutrophils % 71.7 % (41.7-73.7); Nucleated Red Blood Cells % 0.1 % (0-0); Platelets 204 thou/uL (152-406); Red Cell Distribution Width 14.5 % (12.1-15.2)
[2024-08-04 06:12] LABS: Albumin 2.6 g/dL (3.4-5.0); Anion Gap 8.9 mEq/L (5.0-15.0); Magnesium 2.2 mg/dL (1.6-2.4); Potassium 3.9 mEq/L (3.5-5.1); Prealbumin 16.5 mg/dL (20-40)
[2024-08-04] MEDS ORDERED: LIDOCAINE 4% PATCH TOP SCH (08:00)
[2024-08-04] MEDS: predniSONE 20 MG TAB PO SCH (11:00)
--- NOTE | 2024-08-04 18:59 | PN ---
Date of Progress Note: 08/04/2024 Time Of Service: 1:30 p.m. Subjective: Ms. Sigala was recently diagnosed with COVID. She had mild runny nose per the staff and was not short of breath in any significant way, had a very low-grade fever. She is currently lyi ng in bed, very happy with her therapy, made great progress and is about to be discharged home when t he upper respiratory tract symptoms led to a test for COVID which was positive. However, she does no t require any supplementation in terms of oxygenation. She is just now on a low dose of steroids 20 mg daily. Objective: There is no reported fever, chills, except for low-grade fever of around 99. No nausea, vomiting reported. No myalgias, arthralgias. No rash reported. Physical Examination: Vital Signs: Blood pressure 132/63, pulse 60, respiratory rate 18, temperature 98.8, oxygen saturati on 92%. Weight 151 pounds, height 5 feet 6 inches, BMI 24.4. General: As noted she is lying and resting comfortably in bed, very communicative and has no obvious deficit. She is in for the rhabdomyolysis and staff notes do indicate she is up and ambulating very well and would have been ready for discharge home yesterday if not for the positive COVID diagnosis. Laboratory Studies: White blood cell count 5.3, hemoglobin 11.8, platelets 204. Sodium 139, potassi um 3.9, chloride 106, carbon dioxide 28, BUN 13, creatinine 0.66, glucose 94. Calcium 5.8, magnesium 2.2. Albumin 2.6, prealbumin 16.5. Again the rapid COVID test that was done yesterday is positive. She had influenza A and B both negative. X-ray Imaging: A chest x-ray was done yesterday on the . The study showed no evidence of acute cardiopulmonary disease. No pulmonary edema. No pleural effusion. No pneumothorax. The cardiac si lhouette is in normal limits. Progress Made With Physical, Occupational, And Speech Therapy: With physical therapy, she did stand- to-pivot transfers independently. She did have some rocking body movements noted by the therapist. Gait training was independent covered over 300 feet in the room with multiple attempts and she ascend ed and descended step 12 times using single hand rail. With speech, she used divided attention to co mplete a task with 90% accuracy and minimum assistance for recall of directions. She had no issues r etrieving words during conversations, although intermittent lapses in attention were noted. With occ upational therapy, she was at a contact guard assistance level for [id number], wheelchair, she was independent for toileting, showering, upper lower body dressing and donning and doffing footwear with out the use of an assistive device. Assessment: Ms. Sigala is an 83-year-old patient in the rehabilitation unit with rhabdomyolysis f rom which she is recovering in excellent fashion. She has mild decreased mobility, decreased physica l functioning, hypertension, seasonal allergies. She is now COVID positive with very mild symptoms. She is on low-dose steroids. She has hypertension, mild malnutrition, atrial fibrillation, hypothyr oidism. Plan: She will continue with physical, occupational, speech therapy, 3.5 hours, 5/7 days. She has a list of comorbid condition medications which include [place] Thyroid 60 mg daily. She has Xarelto 10 mg daily and prednisone 20 mg daily in addition to Ensure Enlive 237 mL daily. The Xarelto is used in addition for DVT prophylaxis along with stroke risk reduction. Marla continued for seasonal all ergies, amiodarone for heart rate and blood pressure control, Cozaar for blood pressure control. Comorbidities Impacting Rehabilitation: Since she is just diagnosed with COVID and requires some iso lation for the acute phase around 3-5 days she will remain in hospital instead of being discharged ho ms in isolation with all therapies being done. She will continue with low-dose steroids. She will n ot be given Paxlovid at this point. All of her comorbid condition medications will be continued and therapy will be continued until around Thursday, today is , and at that point, she will be di scharged home to continue with therapy and will follow up with her primary care physician and continue her list of medications along with therapy. GREG/SAUL Voice ID: [id number] Report ID: [id number]
[2024-08-05] MEDS ORDERED: predniSONE 20 MG TAB PO SCH (08:00)
[2024-08-06 06:37] VITALS: BP 131/58; TEMP 97.4
[2024-08-06] MEDS: predniSONE 10 MG TAB PO SCH (08:42)
== END 2024-08-06 14:30 | disposition home health service (06) | DRG 557 ==
LOC: 5TH 08:13
PROVIDERS: ADMIT Psychiatry & Neurology Neurology with Special Qualifications in Child Neurology; ATTEND Psychiatry & Neurology Neurology with Special Qualifications in Child Neurology
DX: M62.82 Rhabdomyolysis (principal); U07.1 COVID-19; E44.1 Mild protein-calorie malnutrition; R53.1 Weakness; R53.81 Other malaise; M62.838 Other muscle spasm; I10 Essential (primary) hypertension; E03.9 Hypothyroidism, unspecified; I48.91 Unspecified atrial fibrillation; G47.00 Insomnia, unspecified; K59.00 Constipation, unspecified; F03.90 Unspecified dementia, unspecified severity, without behavioral disturbance, psychotic disturbance, mood disturbance, and anxiety; J30.2 Other seasonal allergic rhinitis; Z68.24 Body mass index [BMI] 24.0-24.9, adult
CPT/HCPCS: 36415; 71045; 80048; 81001; 82040; 82947; 83735; 84134; 85025; 87428; 92523; 93005; 94010; 97110; 97112; 97116; 97129; 97161; 97165; 97530; J2003; J7512